=== PATIENT | male | born 1950 | race Caucasian/White ===

== ENCOUNTER 2024-07-20 11:11 | Emergency (ER) | payer MEDICARE, SELFPAY ==
[2024-07-20] VITALS (35 sets, daily range): BP systolic 92–139; BP diastolic 59–86; PULSE 68–97; RESP 16–20; TEMP 36.9; O2SAT 93–98; BMI 23.0
--- OUTSIDE RECORDS SUMMARY | 2024-07-20 11:14 | XMS_ITS | Clinical Summary ---
Author Organization [facility] Address [address] [place] [id number] Care Team Providers Care Pr Internship Name Role Phone AngeShanti Primary Care Provider Dalila Mckeon PharmD Unavailable [phone] Allergies No known active allergies Medications cholecalciferol (VITAMIN D) 1,000 unit capsule Take 1 capsule by mouth once daily. 0 1 Active multivitamin-folic acid 0.4 mg tablet Take 1 tablet by mouth once daily. Active sodium chloride (Terry 128) 5 % ophthalmic solutionIndication s:Fuchs' corneal dystrophy of both eyes Place 1 Drop into both eyes every 4 hours if needed for Dry Eyes. 15 mL 6 3 Active amLODIPine (NORVASC) 5 mg tabletIndications: Essential hypertension Take 1 Tablet (5 mg) by mouth once daily. 100 Tablet 3 4 Active lisinopriL (PRINIVIL; ZESTRIL) 30 mg tabletIndications: Essential hypertension TAKE 1 TABLET BY MOUTH EVERY DAY IN THE EVENING 100 Tablet 3 4 Active hydroCHLOROthiazid e 25 mg tabletIndications: Essential hypertension Take 1 Tablet (25 mg) by mouth once daily. 100 Tablet 3 4 Active potassium chloride (KLOR-CON M20) 20 mEq extended-release tablet (part/cryst)Indica tions:Hypokalemia Take 2 Tablets (40 mEq) by mouth once daily with a meal. 180 Tablet 3 4 Active simvastatin (ZOCOR) 20 mg tabletIndications: Mixed hyperlipidemia Take 1 Tablet (20 mg) by mouth at bedtime. 100 Tablet 3 4 Active hydrOXYzine HCL (ATARAX) 25 mg tabletIndications: Generalized anxiety disorder Take 1 Tablet (25 mg) by mouth every 6 hours if needed for Anxiety. 30 Tablet 4 Active clobetasol (TEMOVATE) 0.05 % cream Apply topically to affected area(s) as directed 4 Active fluticasone (50 mcg per actuation) nasal solution (FLONASE)Indicatio ns:PND (post-nasal drip) Inhale 1 Hydro in both nostrils once daily. 5 Active Active Problems Problem Noted Date Diagnosed Date Depression, recurrent 09/22/2022 Duodenal ulcer 12/07/2015 Bilateral pseudophakia 09/18/2015 Hyperopia of both eyes with astigmatism and pres byopia 09/18/2015 Generalized anxiety disorder 05/23/2013 Retinitis pigmentosa of both eyes 03/25/2011 Mixed hyperlipidemia 01/15/2010 Vitamin D deficiency 01/15/2010 Family history of premature CAD 10/12/2009 Essential hypertension 10/12/2009 Tremor 10/12/2009 Overview (06/24/2013): Evaluated by neurology 06/14/13 - benign essential tremor. No treatment at this time. Resolved Problems Problem Noted Date Diagnosed Date Resolved Date Stage 3 chronic kidney disease 03/15/2020 03/15/2020 Onychomycosis 02/23/2017 09/13/2020 Overview (02/23/2017): Fingernail. Nail culture: Fusarium species. Lamisil x 6 weeks offered to treat. Routine adult health maintenance 01/13/2017 09/13/2020 Overview (01/13/2017): Colonoscopy 01/2017 diverticulosis repeat in 10 years CKD (chronic kidney disease) stage 3, GFR 30-59 ml/min 08/22/2016 02/18/2018 Cholecystitis 11/29/2015 08/22/2016 Abnormal glucose 05/20/2013 09/13/2020 Anxiety 05/20/2013 05/23/2013 Mole (skin) 10/12/2009 03/20/2024 Encounters Date Type Department Care Team Description 07/20/2024 Nurse Triage [facility] [address] [place], [place] [id number] Shanti Cassidy DO Flank Pain (Left Flank Pain. ) from Last 3 Months Immunizations Immunization Administration Dates Next Due AMB INFLUENZA IIV3 (AGE 65+ YRS) PF (Flu Clinic Only) 12/26/2016 AMB Influenza, IIV4 PF (=>6 mos Flulaval,Fluzone Fluarix)(Flu Clinic Only) 12/24/2018 Amb Influenza, Inact (High-d ose Quadrivalent) (Flu Clinic Only) 12/12/2019 COVID-19 VACCINE SPIKEVAX (M ODERNA 50MCG/0.5ML) 12YO+ PFS 04/06/2023 COVID-19 vaccine (Moderna 50 mcg/0.5mL) 12YO+ BIVALENT PF, MDV 03/31/2022 Influenza, High-dose Inactivated 01/06/2024 Influenza, IIV3 (Age >=3 years) 11/30/2013,12/22,01/06/2012 Influenza, IIV4 12/05/2015,12/25/2014 Influenza, Inactivated AIIV4 (Age 65+ Years) Preserv Free 12/24/2022,12/23/2021,12/13/2020 Influenza, Inactivated IIV3 (Age 65+ Years) Preserv Free 12/10/2017 Pneumococcal Poly,23-Valent (Pneumovax) 02/18/20 18 Pneumococcal conj 13-Valent (Prevnar 13) 017 Tdap 07/04/2021,01/13/2011 Zoster (Shingrix-RZV, recombinant) 12/13/2020, Zoster (Zostavax-ZVL, live) 10/29/2012 Family History Medical History Relation Name Comments Heart Disease Father Heart attack i n early 40 Cancer Mother Lung cancer. Heart Disease Paternal Uncle [place] early 40s Relation Name Status Comments Father Mother Paternal Uncle Social History Tobacco Use Types Packs/Day Years Used Date Smoking Tobacco: Never Smokeless Tobacco: Never Tobacco Cessation:Counseling Given: Yes Alcohol Use Standard Drinks/Week Comments Yes 0 (1 standard drink = 0.6 oz pur e alcohol) social (1x/month) PHQ-2 Answer Date Recorded PHQ-2 TOTAL SCORE 2 03/28/2024 Social Connections Answer Date Recorded Do you often feel lonely or isolated from those around you? 0 11/06/2023 Financial Resource Strain Answer Date R ecorded Difficulty of Paying Living Expenses 3 04/06/2023 Difficulty of Paying Living Expenses Not on file 04/06/2023 Food Insecurity Answer Date Recorded Do you worry your food will run out before you are able to buy more? 1 11/06/2023 Transportation Needs Answer Date Record ed Does lack of transportation keep you from medica l appointments? 1 11/06/2023 Does lack of transportation keep you from work, meetings or getting things that you need? 1 11/06/2023 Housing Stability Answer Date Recorded What is your housing situation today? 1 11/06/2023 Utilities Answer Date Recorded Do you have trouble paying f or utilities (for example, heat, electricity, water, phone)? 1 11/06/2023 Sex and Gender Information Value Date Recorded Sex Assigned at Not on file Legal Sex Male 7:57 AM [facility] Gender Identity Not on file Sexual Orientation Not on file Occupation Industry Job Start Date Job End Date retired Not on file Not on file Not on file Obstetrics History Last Filed Vital Signs Vital Sign Reading Time Taken Comments Blood Pressure 120/82 03/28/2024 9:13 AM [facility] Pulse 66 03/28/2024 9:13 AM [facility] Temperature 36.5 C (97.7 F) 12/18/2023 1:33 PM CDT Respiratory Rate 16 12/24/2015 1:15 PM CDT Oxygen Saturation 98% 03/28/2024 9:13 AM [facility] Inhaled Oxygen Concentration - - Weight 77.1 kg (170 lb) 03/28/2024 9:13 AM [facility] Height 175.9 cm (5' 9.25) 10/05/2023 8:49 AM CD T Body Mass Index 24.92 10/05/2023 8:49 AM CDT Plan of Treatment Upcoming Encounters Date Type Department Care Team (Late st Contact Info) Description 09/26/2024 9:10 AM CDT Office Visit [facility] [address] [place] [address] [place] [address] [place] [address] Health Maintenance Due Date Last Done Comments COVID-19 vaccine series (2023- season) 2024 01/06/2024, 04/06/2023, 03/31/2022, Additional history exists BMI (ht and wt on same day) for age 18+ 10/04/2024 10/05/2023, 04/06/2023, 09/22/2022, Additional history exists Depression screening for age 12+ 03/28/2025 03/28/19 Medicare Wellness for age 65+ 03/29/2025, 04/06/2023, 03/31/2022, Additional history exists RSV vaccine for adults or (1 - 1-dose 75+ series) 06/05/2026 Colonoscopy through age 75 01/13/202701/13, 01/13/2017, 01/13/2017, Additional history exists Lipids for age 45-75 10/04/2028 10/05/2023, 09/22/2022, 09/23/2021, Additional history exists Tetanus booster 07/05/2031 07/04/2021, 01/13/2011 Pneumococcal series for age 50+ Completed 8, 08/22/2016 Hepatitis C screening for ag e 18-79 Completed 02/14/2019 Zoster (shingles) series for age 50+ Completed 12/13/2020, 10/02/2020, 10/29/2012 Tdap Completed 07/04/2021, 01/13/2011 Influenza Vaccine Completed 01/06/2024, , 12/23/2021, Additional history exists Goals Goal Patient Goal Type Associated Problems Recent Progress Patient-Stated? Author BLOOD PRESSURE - MAINTAINS BP less than 140/90 Blood Pressure No Shanti Cassidy DO Medical Devices Implanted Type Area Manager Business Process Device Identifier Shelf Expiration Date Model / Serial / Lot Lens Iol Zcb00 16.0 - [id number] Implanted:Qty: 1 on 01/08/2015 by Carlos Killian MD at [facility] Left: Eye [employer] 2018 ZCB00# / [id number] / Lens Iol Zcb00 17.0 - [id number] Implanted:Qty: 1 on 02/12/2015 by Carlos Killian MD at [facility] Right: Eye [employer] [id number] 08/26/2018 ZCB00# / [id number] / Procedures Procedure Name Priority Date/Time Associated Diagnosis Comments LIPID PANEL W REFLEX MEASURED LDL Routine 10/05/2023 10:08 AM CDT Mixed hyperlipidemia ANTI HCV Routine 02/14/2019 10:18 AM [facility] Need for hepatitis C screening test COLONOSCOPY 01/13/2017 10:44 AM [facility] from Last 3 Months or Most Recently Relevant to Health Maintenance Results * LIPID PANEL W REFLEX MEASURED LDL (10/05/2023 10:08 AM CDT) CHOLESTEROL,TOTAL 126 100 - 199 mg/dL 10/05/2023 4:13 PM CDT [facility] Comment: Cholesterol, Total Reference Ranges Desirable <200 mg/dL Borderline 200-239 mg/dL High >=240 mg/dL TRIGLYCERIDES 74 <150 mg/dL 10/05/2023 4:13 PM CDT [facility] HDL CHOLESTEROL 46 >40 mg/dL 4:13 PM CDT [facility] NON-HDL CHOLESTEROL 80 <145 mg/dl 10/05/2023 4:13 PM CDT [facility] CHOL/HDL RATIO 2.74 <4.50 10/05/2023 4:13 PM CDT [facility] LDL CHOLESTEROL 65 <=130 mg/dL 10/05/2023 4:13 PM CDT [facility] VLDL CHOLESTEROL 15 <=30 mg/dL 10/05/2023 4:13 PM CDT [facility] PROVIDER ORDERED STATUS RANDOM 10/05/2023 4:13 PM CDT [facility] Blood BLOOD SPECIMEN / Unknown Venipuncture / Unknown 10/05/2023 10:08 AM CDT 10/05/2023 10:08 AM CDT Shanti Cassidy DO CHEMISTRY Final Resul t Performing Organization Address City/[facility] [address]/ZIP Co de Phone Number [facility] [address] [place] [address], [place] * ANTI HCV (02/14/2019 10:18 AM [facility]) HEPATITIS C ANTIBODY Non-React maldonado Non-React maldonado 02/14/2019 4:24 PM [facility] Comment:Antibodies to HCV no t detected; does not exclude the possibility of exposure to HCV. Blood BLOOD SPECIMEN / Unknown Venipuncture / Unknown 02/14/2019 10:18 AM [facility] 02/14/2019 10:18 AM [facility] Shanti Cassidy DO SEND OUTS Final Resul t Performing Organization Address City/[facility] [address]/[facility] Co de Phone Number [facility] [address] [place] [address], [place] * COLONOSCOPY (01/13/2017 10:44 AM [facility]) 01/13/2017 10:4 4 AM [facility] Narrative Transcriptions Hima Gonzalez MD - 01/13/2017 11:46 AM CST Patient Name: Solis Connor Procedure Date: 01/13/2017 Gender: Male Date of : 1950 Admit Type: Outpatient Procedure: Colonoscopy Proceduralist: Hima Gonzalez MD , Loida Brush (Nurse) Referring MD: Shanti Cassidy Indications/Pre-Op Diagnosis: Screening for colorectal malignant neoplasm, Last colonoscopy: October 2006 Medications: Fentanyl 100 micrograms IV, Midazolam 4 mgIV, The level of sedation administered wasmoderate Procedure Description: The patient had risks, benefits and alternatives explained to andgave informed consent. The patient had a stable cardiopulmonary status and judged an adequate candidate for conscious sedation. The [id number] was passed through the anus and advanced tothe cecum, identified by appendiceal orifice and ileocecal valve. The colonoscopy was performed without difficulty. The patient toleratedthe procedure well. The quality of the bowel preparation was good. The ileocecal valve, appendiceal orifice, and rectum were photographed. Complications: No immediate complications. Estimated Blood Loss & Specimen: Estimated blood loss: none. Specimen collected - None Findings: The perianal and digital rectal examinations were normal. Scattered small and large-mouthed diverticula were found in thesigmoid colon, descending colon and transverse colon. The exam was otherwise without abnormality on direct and retroflexion views. Impressions/Post-Op Diagnosis: - Diverticulosis in the sigmoid colon, in the descending colon and in the transverse colon. - The examination was otherwise normal on direct and retroflexionviews. - No specimens collected. Recommendation: - Patient has a contact number available for emergencies. The signsand symptoms of potential delayed complications were discussed with the patient. Return to normal activities tomorrow. Written discharge instructions were provided to the patient. - Resume previous diet. - Continue present medications. - Repeat colonoscopy in 10 years for screening purposes. Moderate Sedation: Moderate (conscious) sedation was administered by the endoscopy nurse and supervised by the endoscopist. The following parameters were monitored: oxygen saturation, heart rate, respiratory rate, blood pressure, adequacy of pulmonary ventilation and reponse to care. [facility] and nursing notes for moderate sedation details. Total physician intraservice time was 19 minutes. Hima Gonzalez MD 01/13/2017 11:46:03 AM This report has been signed electronically. Note Initiated On: 01/13/2017 10:44 AM Scope In: 11:26:41 AM Scope Withdrawal Time 0 hours 8 minutes 44 seconds Scope Out: 11:42:49 AM Hima Gonzalez MD PROCEDURE ORD Final Res ult from Last 3 Months or Most Recently Relevant to Health Maintenance Insurance [employer] MEDICARE ADVANTAGE MR Advance Directives Documents on File Type Date Recorded Patient Filer Finish Expl anation Healthcare Directive 01/18/2024 024 * Full Code (Latest Code Status on File) Date Activated Date Inactivated Comments 12/24/2015 1:10 PM 12/25/2015 2:28 AM * Full Code Date Activated Date Inactivated Comments 11/29/2015 2:09 PM 12/02/2015 3:05 PM * Full Code Date Activated Date Inactivated Comments 03/05/2015 7:00 AM 03/06/2015 2:40 AM * Full Code Date Activated Date Inactivated Comments 02/12/2015 7:36 AM 02/12/2015 1:00 PM * Full Code Date Activated Date Inactivated Comments 01/08/2015 10:26 AM 01/08/2015 3:32 PM Care Teams Pr Internship Relationship Specialty [place] [address] [place] [address] PCP - General Family Practice 04/01/12 Dalila Mckeon, Ramya [address] [place] [address] [place] QIU [id number] Pharmacist Medication Management Pharmacology 11/13/23 11/12/26
--- NOTE | 2024-07-20 11:29 | ED_ITS ---
HPI - General Adult General Chief complaint: Back Injury/Pain Stated complaint: Back pain Time Seen by Provider: 07/20/24 11:29 History of Present Illness HPI narrative: Pt has severe back pain after lifting bag of soil on Thursday. Then ate spicy Japanese food that evening. Pain worsened after sitting/ standing at hinduism on Thursday. Has had the urge to urinate more frequently since the injury as well, and some burning with urination. Pt concerned he was dehydrated, was not eating or drinking as much. Pt has been able to eat/drink adequately for the last few days but feels weaker than normal. Back pain is pretty good now. Pt spoke with his clinic today and they told the pt he had 1 of 2 Page: Solis Connor Fac: [facility] Loc:Emergency Department Bed:- 74 M 1950 Med Rec Num:[id number] Visit:[id number] flank pain and needed to be seen in the ER. Pt is blind with dx with retinitis pigmentosa. 74-year-old man presenting to the emergency department with complaint of intermittent low back pain. Thought maybe it started following lifting a bag of so ill about 4 days ago. The next day was having some discomfort. Has been experiencing a little dysuria at initiation of urination. Left flank area pain wrapping around the left side but not into the groin. No known kidney stones. Of course does not see hematuria. Back pain overall is improved. Does have some back pain otherwise from time to time but nothing diagnosed historically. [place] a little warm the other day but unknown whether not had a fever. Describes spasms of pain. Three days ago around the time it began he did have experience some nausea. Subsequently vomited up his pills that he try to take with some water he said. Does not sound like any vomiting since. No bowel movement over the last 3 days was wondering if he might be obstructed. Has been passing gas however. I make mention of somewhat low blood pressure noted here. He says that he has been working on his blood pressure with some medications. Does not seem particularly surprised by the current number. Related Data Home Medications ?Medication ?Instructions ?Recorded ?Confirmed amlodipine 5 mg tablet 5 mg PO DAILY 07/20/24 07/20/24 hydrochlorothiazide 25 mg tablet 25 mg PO DAILY 07/20/24 07/20/24 lisinopril 30 mg tablet 30 mg PO QPM 07/20/24 07/20/24 potassium chloride 20 mEq meq PO 07/20/24 tablet,extended release(part/cryst) simvastatin 20 mg tablet 20 mg PO QPM 07/20/24 07/20/24 Allergies Allergy/AdvReac Type Severity Reaction Status Date / Time No Known Drug Allergies Allergy Verified 07/20/24 11:26 Review of Systems Status of ROS: Reports: 6 or more systems reviewed and unremarkable except as noted in History and below [facility] Social History Smoking Status: Never smoker How often do you have a drink containing alcohol: monthly or less How often do you have six or more drinks on one occasion: Never AUDIT-C Alcohol total score: 1 Non-prescribed substance use: denies use Exam Narrative: Exam Narrative: Pleasant. Does look past me consistent with described level of blindness. Head is atraumatic. Resting head tremor most notably. Lungs are clear. Abdomen is with tenderness in the left lower quadrant. No peritoneal signs. He is with generally soft abdomen. No flank pain but more of a discomfort from my cold hands. No genital tenderness. Area of discomfort described is above the left SI joint in the paraspinal musculature but not really able to reproduce this. Lower extremities well perfused without edema. Heart in regular rate and rhythm. Const: Vital Signs, click to edit/add: Vital Signs - 24 hr 07/20/24 11:14 07/20/24 13:05 07/20/24 13:14 Temperature 98.4 F Pulse Rate 78 Pulse Rate [Pulse Oximeter] 97 81 Respiratory Rate 20 16 Blood Pressure Blood Pressure [Le ft Upper Arm] 92/66 133/81 Blood Pressure [Ri ght Upper Arm] 93/59 L Pulse Oximetry 97 98 98 Oxygen Delivery Me thod Room Air Room Air 07/20/24 13:15 07/20/24 13:30 07/20/24 13:57 Temperature Pulse Rate 84 76 82 Pulse Rate [Pulse Oximeter] Respiratory Rate Blood Pressure Blood Pressure [Le ft Upper Arm] Blood Pressure [Ri ght Upper Arm] Pulse Oximetry 97 97 97 Oxygen Delivery Me thod 07/20/24 13:58 07/20/24 14:00 07/20/24 14:01 Temperature Pulse Rate 83 78 83 Pulse Rate [Pulse Oximeter] Respiratory Rate Blood Pressure 121/74 116/78 Blood Pressure [Le ft Upper Arm] Blood Pressure [Ri ght Upper Arm] Pulse Oximetry 95 97 96 Oxygen Delivery Me thod 07/20/24 14:15 Temperature Pulse Rate 80 Pulse Rate [Pulse Oximeter] Respiratory Rate Blood Pressure Blood Pressure [Le ft Upper Arm] Blood Pressure [Ri ght Upper Arm] Pulse Oximetry 98 Oxygen Delivery Me thod Documenting provider has reviewed patient's vital signs: yes Course Vital Signs Vital signs: Initial Vital Signs Temperature 98.4 F 07/20/24 11:14 Temperature Source Temporal Artery Scan 07/20/24 11:14 Pulse Rate 97 07/20/24 11:14 Respiratory Rate 20 07/20/24 11:14 Blood Pressure 93/59 L 07/20/24 11:14 Blood Pressure Mean 70 07/20/24 11:14 Blood Pressure Position Sitting 07/20/24 11:14 Pulse Oximetry 97 07/20/24 11:14 Oxygen Delivery Method Room Air 07/20/24 11:14 Vital Signs Temperature 98.4 F 07/20/24 11:14 Pulse Rate 97 07/20/24 11:14 Respiratory Rate 20 07/20/24 11:14 Blood Pressure 93/59 L 07/20/24 11:14 Pulse Oximetry 97 07/20/24 11:14 Oxygen Delivery Method Room Air 07/20/24 11:14 Temperature 98.4 F 07/20/24 11:14 Pulse Rate 80 07/20/24 14:15 Respiratory Rate 16 07/20/24 13:05 Blood Pressure 116/78 07/20/24 14:01 Pulse Oximetry 98 07/20/24 14:15 Oxygen Delivery Method Room Air 07/20/24 13:05 Medications Administered Medications: Discontinued Medications Generic Name Dose Route Start Last Admin Trade Name Freq PRN Reason Stop Dose Admin Sodium Chloride 500 mls @ 500 mls/hr 07/20/24 12:50 07/20/24 14:40 0.9 % Sodium Chloride 500 Ml IV 07/20/24 13:49 Infused .Q1H ONE Infusion Ceftriaxone Sodium 1 gm/ 100 mls @ 200 mls/hr 07/20/24 15:20 07/20/24 16:20 Sodium Chloride IVPB 07/20/24 15:21 Infused ONCE ONE Infusion Sodium Chloride 1,000 mls @ 1,000 mls/hr 07/20/24 15:21 07/20/24 17:35 0.9 % Sodium Chloride 1000 Ml IV 07/20/24 16:20 Infused .Q1H ONE Infusion Ketorolac Tromethamine 15 mg 07/20/24 14:32 07/20/24 14:48 Ketorolac 15 Mg/Ml Inj IVP 07/20/24 14:33 15 mg ONCE ONE Administration Morphine Sulfate 2 mg 07/20/24 14:32 07/20/24 14:52 Morphine 2 Mg/Ml Inj IVP 07/20/24 14:33 2 mg ONCE ONE Administration Tamsulosin HCl 0.4 mg 07/20/24 14:32 07/20/24 14:47 Tamsulosin Hcl 0.4 Mg Capsule PO 07/20/24 14:33 0.4 mg ONCE ONE Administration Medical Decision Making MDM Narrative Medical decision making narrative: Tender left abdomen and flank might represent urinary tract infection even diverticulitis. Constipation might be playing a role. Urinalysis notable for hematuria. Does not look infected. Perhaps this is representing ureteral stone. Would want a verify renal function as well. Nephritis or nephropathy? Sepsis? Blood pressure rechecks have improved having only received 500 mL of normal saline. By my independent read appears to have marked hydronephrosis of the left side along with stone in the distal left ureter looks to be about 1 cm. Radiology over-read below INDICATION: Hematuria and left flank pain COMPARISON: November 25, 2015 TECHNIQUE: CT examination of the abdomen and pelvis was performed without intravenous contrast. Thin section axial images were obtained from the lung bases through the pubic symphysis. Oral contrast was not administered. Please note that all CT scans at this facility use dose modulation, iterative reconstruction, and/or weight-based dosing when appropriate to reduce radiation dose to as low as reasonably achievable. FINDINGS: LUNG BASES: Basilar opacities are noted probably due to atelectasis and/or scarring.The heart size is normal the lung bases. A moderate-sized hiatal hernia is noted LIVER/BILIARY SYSTEM:The liver is normal in size and configuration given the lack of intravenous contrast. There is no visible focal mass and there is no intra- or extra hepatic biliary ductal dilatation.The gallbladder is surgically absent ADRENALS: Normal non-contrast appearance KIDNEYS, URETERS and BLADDER:Intrarenal calculus lower pole right kidney. No definite intrarenal calculi on the left. No right-sided obstructive uropathy. Severe left hydronephrosis and left hydroureter. This is due to a calculus at the left ureterovesical junction measuring 1.5 x 1.0 centimeters. SPLEEN:Incidental granulomatous calcifications PANCREAS: Normal non-contrast appearance. RETROPERITONEUM and MESENTERY: There is no mass, adenopathy or aortic aneurysm. Atherosclerotic vascular calcifications GASTROINTESTINAL SYSTEM: There is no evidence of diverticulitis, colitis, mechanical obstruction, or appendicitis. The small bowel as visualized appears normal.Diverticulosis PELVIS: No mass, adenopathy or free fluid.Moderately enlarged prostate OSSEOUS STRUCTURES and ABDOMINAL WALL: Grade 1 degenerative spondylolisthesis of L4 on L5 somewhat progressive since 2016.No significant abdominal wall abnormality OTHER: No free fluid or free air. IMPRESSION: 1. Severe left hydronephrosis and left hydroureter due to a calculus at the inner orifice of the left ureterovesical junction measuring 1.5 x 1.0 centimeters. 2. Small intrarenal calculus on the right. No definite intrarenal calculi on the left. 3. Other incidental nonacute appearing findings as discussed in the body of the report Please note that all CT scans at this facility use dose modulation, iterative reconstruction, and/or weight-based dosing when appropriate to reduce radiation dose to as low as reasonably achievable. Able to obtain labs from March of this year. This does show creatinine of 1.14. His creatinine today is 2.2-2.3 Does appear to have acute renal injury. White count is low bit elevated at over 15,000. I have contacted Urology for further recommendations. Giving pain med and Flomax as he would now appreciate something for his pain. On reassessment symptoms are improved. I have also ordered for g Rocephin. Discuss them with Urology Dr. Petty and recommending transfer for further cares. Thankfully able to find a bed at [facility]. Dr. Baez accepting Lab Data Lab results reviewed: Yes I reviewed the patient's lab results Labs: Lab Results 07/20/24 07/20/24 07/20/24 Range/Units 12:21 12:51 13:00 WBC 15.01 H (4.50-11.00) K/uL RBC 5.06 (4.30-5.90) m/uL Hgb 15.6 (13.5-17.5) gm/dL Hct 44.4 (37.0-53.0) % MCV 88 (80-100) fL MCH 31 (26-34) pg MCHC 35 (32-36) gm/dL RDW Coeff of Cookie 12.7 (11.5-15.5) % Plt Count 221 (140-440) K/uL Neut % (Auto) 80.4 H (42.0-72.0) % Lymph % (Auto) 6.9 L (20-44) % [place] % (Auto) 12.1 H (0.0-11.0) % Eos % (Auto) 0.3 (0.0-7.0) % Baso % (Auto) 0.1 (0.0-3.0) % Neut # (Auto) 12.10 H (1.7-7.0) K/uL Lymph # (Auto) 1.00 (0.90-2.90) K/uL [place] # (Auto) 1.80 H (0.00-0.90) K/UL Eos # (Auto) 0.00 (0.00-0.50) K/uL Baso # (Auto) 0.00 (0.00-0.30) K/uL Abs Immat Gran (auto) 0.00 (0.00-0.30) K/uL Imm/Tot Granulo (auto) 0.2 % Sodium 136 (135-149) mmol/L Potassium 3.3 L (3.6-5.1) mmol/L Chloride 96 (96-114) mmol/L Carbon Dioxide 31 (20-32) mmol/L Anion Gap 9 (7-15) mEq/L BUN 41 H (7-30) mg/dL Creatinine 2.2 H (0.5-1.5) mg/dL Estimated Creat Clear 30.70 Estimated GFR 31 ml/min Glucose 120 H (60-115) mg/dL Calcium 9.7 (8.4-10.6) mg/dL C-Reactive Protein 7.7 H (0.5-1.0) mg/dL Urine Color Brown A (Yellow) Urine Appearance Clear (Clear) Urine pH 5.5 (5.0-8.5) Ur Specific [place] 1.025 (1.000-1.030) Urine Protein 3+ A (Negative) Urine Glucose (UA) Negative (Negative) Urine Ketones 1+ A (Negative) Urine Blood 2+ A (Negative) Urine Nitrite Negative (Negative) Urine Bilirubin 1+ A (Negative) Urine Urobilinogen 2.0 A (0.2-1.0) Ur Leukocyte Esterase Negative (Negative) Urine RBC 10-25 A (0-2) Urine WBC 2-5 (0-5) Ur Squamous Epith Cells Few (None-Few) Amorphous Sediment Moderate A (None) Urine Bacteria Few A (None) POC Creatinine 2.3 H (0.6-1.3) mg/dl Discharge Plan Discharge Clinical Impression: Hydronephrosis with urinary obstruction due to ureteral calculus, Acute kidney injury Patient Disposition: Xfer Other Discharge Location: [facility] Condition: Improved Prescriptions: No Action amlodipine 5 mg tablet 5 mg PO DAILY potassium chloride 20 mEq tablet,ER particles/crystals PO simvastatin 20 mg tablet 20 mg PO QPM lisinopril 30 mg tablet 30 mg PO QPM hydrochlorothiazide 25 mg tablet 25 mg PO DAILY Follow Up/Referrals: Provider,Not a Local [Primary Care Provider] - Stand Alone Forms: [email or web address] [email or web address] Info Instructions
[2024-07-20 12:30] LABS: Appearance Urine Clear (Clear); Bilirubin Urine 1+ (Negative); Blood Urine 2+ (Negative); Color Urine Brown (Yellow); Glucose Urine Negative (Negative); Ketones Urine 1+ (Negative); Leukocyte Esterase Urine Negative (Negative); Nitrite Urine Negative (Negative); Protein Urine 3+ (Negative); Specific Gravity Urine 1.025 (1.000-1.030); pH Urine 5.5 (5.0-8.5)
--- OUTSIDE RECORDS SUMMARY | 2024-07-20 12:40 | XMS_ITS | Clinical Summary ---
Author Organization [employer] [facility] Address [address] [place] [id number] Care Team Providers Care Cosmetic Account Coordinator Name Role Phone AngeShanti Primary Care Provider Dalila Mckeon PharmD Unavailable [phone] Allergies No known active allergies Medications cholecalciferol [...] solution (FLONASE)Indicatio ns:PND (post-nasal drip) Inhale 1 [place] in both nostrils once daily. 5 Active [...] Department Care Team Description 07/20/2024 Nurse Triage [facility] [address] [address] [place], [place] [id number] Shanti Cassidy DO Flank Pain (Left Flank [...] Mother Lung cancer. Heart Disease Paternal Uncle [place] early 40s Relation Name Status Comments Father [...] on file Legal Sex Male 7:57 AM HAND COOPER HELPER Gender Identity Not on file Sexual Orientation Not on file Occupation Industry Job Start Date Job End Date retired Not on file Not on file Not on file Obstetrics History Last Filed Vital Signs Vital Sign Reading Time Taken Comments Blood Pressure 120/82 03/28/2024 9:13 AM HAND COOPER HELPER Pulse 66 03/28/2024 9:13 AM HAND COOPER HELPER Temperature 36.5 C (97.7 F) 12/18/2023 1:33 PM CDT Respiratory Rate 16 12/24/2015 1:15 PM CDT Oxygen Saturation 98% 03/28/2024 9:13 AM HAND COOPER HELPER Inhaled Oxygen Concentration - - Weight 77.1 kg (170 lb) 03/28/2024 9:13 AM HAND COOPER HELPER Height 175.9 cm (5' 9.25) 10/05/2023 8:49 AM CD T Body Mass Index 24.92 10/05/2023 8:49 AM CDT Plan of Treatment Upcoming Encounters Date Type Department Care Team (Late st Contact Info) Description 09/26/2024 9:10 AM CDT Office Visit [facility] [place] [address] [place] [address] [place] [address] [place] [address] Health Maintenance Due Date Last Done Comments [...] Cassidy DO Medical Devices Implanted Type Area Gasoline Finisher Device Identifier Shelf Expiration Date Model / Serial / Lot Lens Iol Zcb00 16.0 - [id number] Implanted:Qty: 1 on 01/08/2015 by Carlos Killian MD at [facility] Left: Eye [employer] 2018 ZCB00# / [id number] / Lens Iol Zcb00 17.0 - [id number] Implanted:Qty: 1 on 02/12/2015 by Carlos Killian MD at [facility] Right: Eye [employer] [id number] 08/26/2018 ZCB00# / [id number] / Procedures Procedure Name Priority Date/Time Associated Diagnosis Comments LIPID PANEL W REFLEX MEASURED LDL Routine 10/05/2023 10:08 AM CDT Mixed hyperlipidemia ANTI HCV Routine 02/14/2019 10:18 AM HAND COOPER HELPER Need for hepatitis C screening test COLONOSCOPY 01/13/2017 10:44 AM HAND COOPER HELPER from Last 3 Months or Most Recently Relevant to Health Maintenance Results * LIPID PANEL W REFLEX MEASURED LDL (10/05/2023 10:08 AM CDT) CHOLESTEROL,TOTAL 126 100 - 199 mg/dL 10/05/2023 4:13 PM CDT [facility] Comment: Cholesterol, Total Reference Ranges Desirable <200 mg/dL Borderline 200-239 mg/dL High >=240 mg/dL TRIGLYCERIDES 74 <150 mg/dL 10/05/2023 4:13 PM CDT [facility] HDL CHOLESTEROL 46 >40 mg/dL 4:13 PM CDT [facility] NON-HDL CHOLESTEROL 80 <145 mg/dl 10/05/2023 4:13 PM CDT [facility] CHOL/HDL RATIO 2.74 <4.50 10/05/2023 4:13 PM CDT [facility] LDL CHOLESTEROL 65 <=130 mg/dL 10/05/2023 4:13 PM CDT [facility] VLDL CHOLESTEROL 15 <=30 mg/dL 10/05/2023 4:13 PM CDT [facility] PROVIDER ORDERED STATUS RANDOM 10/05/2023 4:13 PM CDT [facility] Blood BLOOD SPECIMEN / Unknown Venipuncture / Unknown 10/05/2023 10:08 AM CDT 10/05/2023 10:08 AM CDT Shanti Cassidy DO CHEMISTRY Final Resul t Performing Organization Address City/[facility]/ZIP Co de Phone Number [facility] [address] [place] [address], [place] * ANTI HCV (02/14/2019 10:18 AM HAND COOPER HELPER) HEPATITIS C ANTIBODY Non-React maldonado Non-React maldonado 02/14/2019 4:24 PM HAND COOPER HELPER [facility] Comment:Antibodies to HCV no t detected; does not exclude the possibility of exposure to HCV. Blood BLOOD SPECIMEN / Unknown Venipuncture / Unknown 02/14/2019 10:18 AM HAND COOPER HELPER 02/14/2019 10:18 AM HAND COOPER HELPER Shanti Cassidy DO SEND OUTS Final Resul t Performing Organization Address City/[facility] Co de Phone Number [facility] [address] [place] [address], [place] * COLONOSCOPY (01/13/2017 10:44 AM HAND COOPER HELPER) 01/13/2017 10:4 4 AM HAND COOPER HELPER Narrative Transcriptions Hima Gonzalez MD - 01/13/2017 [...] adequate candidate for conscious sedation. The [id number] was passed through the anus and advanced [...] reponse to care. [facility] and nursing notes for moderate sedation details. Total physician intraservice time was 19 minutes. Hmia Gonzalez MD 01/13/2017 11:46:03 AM This report [...] Documents on File Type Date Recorded Patient Starter Mechanic Expl anation Healthcare Directive 01/18/2024 024 * [...] 10:26 AM 01/08/2015 3:32 PM Care Teams Cosmetic Account Coordinator Relationship Specialty [place] [id number] [place] [address] PCP - General Family Practice 04/01/12 Dalila Mckeon, Ramya [address] [place] [address] [place] [id number] Pharmacist Medication Management Pharmacology 11/13/23 11/12/26
[2024-07-20 12:44] LABS: Amorphous Sediment Urine Moderate; Bacteria Urine Few; Squamous Epithelial Cell Urine Few (None-Few)
--- NOTE | 2024-07-20 12:50 | CRLHL7_ITS ---
For Patients: As a result of the 21st Century Cures Act, medical imaging exams and procedure reports are released immediately into your electronic medical record. You may view this report before your referring provider. If you have questions, please contact your health care provider. INDICATION: Hematuria and left flank pain COMPARISON: November 25, 2015 TECHNIQUE: CT examination of the abdomen and pelvis was performed without intravenous contrast. Thin section axial images were obtained from the lung bases through the pubic symphysis. Oral contrast was not administered. Please note that all CT scans at this facility use dose modulation, iterative reconstruction, and/or weight-based dosing when appropriate to reduce radiation dose to as low as reasonably achievable. FINDINGS: LUNG BASES: Basilar opacities are noted probably due to atelectasis and/or scarring.The heart size is normal the lung bases. A moderate-sized hiatal hernia is noted LIVER/BILIARY SYSTEM:The liver is normal in size and configuration given the lack of intravenous contrast. There is no visible focal mass and there is no intra- or extra hepatic biliary ductal dilatation.The gallbladder is surgically absent ADRENALS: Normal non-contrast appearance KIDNEYS, URETERS and BLADDER:Intrarenal calculus lower pole right kidney. No definite intrarenal calculi on the left. No right-sided obstructive uropathy. Severe left hydronephrosis and left hydroureter. This is due to a calculus at the left ureterovesical junction measuring 1.5 x 1.0 centimeters. SPLEEN:Incidental granulomatous calcifications PANCREAS: Normal non-contrast appearance. RETROPERITONEUM and MESENTERY: There is no mass, adenopathy or aortic aneurysm. Atherosclerotic vascular calcifications GASTROINTESTINAL SYSTEM: There is no evidence of diverticulitis, colitis, mechanical obstruction, or appendicitis. The small bowel as visualized appears normal.Diverticulosis PELVIS: No mass, adenopathy or free fluid.Moderately enlarged prostate OSSEOUS STRUCTURES and ABDOMINAL WALL: Grade 1 degenerative spondylolisthesis of L4 on L5 somewhat progressive since 2016.No significant abdominal wall abnormality OTHER: No free fluid or free air. IMPRESSION: 1. Severe left hydronephrosis and left hydroureter due to a calculus at the inner orifice of the left ureterovesical junction measuring 1.5 x 1.0 centimeters. 2. Small intrarenal calculus on the right. No definite intrarenal calculi on the left. 3. Other incidental nonacute appearing findings as discussed in the body of the report Please note that all CT scans at this facility use dose modulation, iterative reconstruction, and/or weight-based dosing when appropriate to reduce radiation dose to as low as reasonably achievable. Dictated by Jae Moreau MD @ 07/20/2024 2:01:01 PM (Electronically Signed)
[2024-07-20 13:15] LABS: Basophils Percent Auto 0.1 % (0.0-3.0); Eosinophils Percent Auto 0.3 % (0.0-7.0); Hematocrit 44.4 % (37.0-53.0); Hemoglobin* 15.6 gm/dL (13.5-17.5); Immature Granulocytes Pct Auto 0.2 %; Lymphocytes Percent Auto 6.9 % (20-44); Mean Corpuscular HGB Conc 35 gm/dL (32-36); Mean Corpuscular Hemoglobin 31 pg (26-34); Mean Corpuscular Volume 88 fL (80-100); Monocytes Percent Auto 12.1 % (0.0-11.0); Neutrophils Percent Auto 80.4 % (42.0-72.0); Platelet Count* 221 K/uL (140-440); RDW Coefficient of Variation % 12.7 % (11.5-15.5); Red Blood Count 5.06 m/uL (4.30-5.90); White Blood Count* 15.01 K/uL (4.50-11.00)
[2024-07-20 13:16] LABS: Slide Review Reflex No
[2024-07-20 13:21] LABS: Creatinine, Point-of-Care* 2.3 mg/dl (0.6-1.3)
[2024-07-20 13:32] LABS: Chloride* 96 mmol/L (96-114); Potassium* 3.3 mmol/L (3.6-5.1); Sodium* 136 mmol/L (135-149)
[2024-07-20 13:36] LABS: Anion Gap 9 mEq/L (7-15); Blood Urea Nitrogen* 41 mg/dL (7-30); Calcium* 9.7 mg/dL (8.4-10.6); Carbon Dioxide* 31 mmol/L (20-32); Creatinine* 2.2 mg/dL (0.5-1.5); Estimated Glomerular Filt Rate 31 ml/min; Glucose* 120 mg/dL (60-115)
[2024-07-20 13:39] LABS: C Reactive Protein* 7.7 mg/dL (0.5-1.0)
[2024-07-20] MEDS: 0.9 % SODIUM CHLORIDE 500 ML 500 ML IV (13:57)
[2024-07-20] MEDS: TAMSULOSIN HCL 0.4 MG CAPSULE PO (14:47)
[2024-07-20] MEDS: KETOROLAC 15 MG/ML inj IVP (14:48)
[2024-07-20] MEDS: MORPHINE 2 MG/ML inj IVP (14:52)
[2024-07-20] MEDS: 0.9 % SODIUM CHLORIDE 1000 ml 1,000 ML IV (15:49)
[2024-07-20] MEDS: cefTRIAXone 1 GM in 0.9 % SODIUM CHLORIDE Mini-bag 100 ML IVPB (15:50)
== END 2024-07-20 18:30 | disposition other institution (70) ==
PROVIDERS: Emergency Provider Family Medicine; PCP Family Medicine
DX: N13.2 Hydronephrosis with renal and ureteral calculous obstruction (principal); R31.9 Hematuria, unspecified; I95.9 Hypotension, unspecified
CPT/HCPCS: 36415; 74176; 80048; 81001; 82565; 85025; 86140; 87040; 87086; 99284; 99285; A9270; J0696; J1885; J2270; J7030

== ENCOUNTER 2024-07-20 18:35 | Outpatient (CLI) | payer MEDICARE, SELFPAY | END 2024-07-20 18:36 | disposition home or self-care (01) | LOC: AMB 07-21 09:42 | PROVIDERS: Visit Provider Emergency Medicine | DX: N13.2 Hydronephrosis with renal and ureteral calculous obstruction (principal) | CPT/HCPCS: A0425; A0427 ==